=== PATIENT | female | born 1935 | race Caucasian/White ===

== ENCOUNTER 2017-09-05 19:59 | Observation (INO) | payer MEDICARE, OTHER ==
[2017-09-05] MEDS ORDERED: Nitroglycerin 0.4 MG Tab.SL SL ONE (20:08)
--- NOTE | 2017-09-05 20:13 | EDM.PDOC ---
ED HPI GENERAL MEDICAL PROBLEM - General Chief Complaint: Chest Pain Stated Complaint: chest pain Time Seen by Provider: 09/05/17 20:06 Source of Information: Reports: Patient History Limitations: Reports: No Limitations - History of Present Illness INITIAL COMMENTS - FREE TEXT/NARRATIVE: 30 min history of chest pain. Describes feeling of epigastric burning sensation that feels like heartburn. Discomfort radiates into left shoulder/arm and neck. Has improved since it started. Also radiated towards back at its worst. No history of similar pain in past. Denies CAD/ND history. No SOB/sweating. Had mild nausea. No other changes reported by patient. Normal stress test one year ago. - Related Data Allergies Allergy/AdvReac Type Severity Reaction Status Date / Time Sulfa (Sulfonamide Allergy Other Verified 09/05/17 20:04 Antibiotics) Home Meds: Home Meds ALPRAZolam [Alprazolam] 1.5 mg PO BEDTIME 01/31/15 [History] Aspirin 325 mg PO DAILY 01/31/15 [History] Atenolol 0.5 tab PO BID 01/31/15 [History] Furosemide 1 tab PO DAILY 01/31/15 [History] Imipramine HCl 4 tab PO BEDTIME 01/31/15 [History] Simvastatin 1 tab PO BEDTIME 01/31/15 [History] Past Medical History Cardiovascular History: Reports: High Cholesterol, Hypertension Gastrointestinal History: Reports: GERD Psychiatric History: Reports: Anxiety, Depression Social & Family History - Family History Other Cardiac Family History: Denies history of ND/CAD in family. - Tobacco Use Smoking Status *Q: Never Smoker - Alcohol Use Alcohol Use History: No - Recreational Drug Use Recreational Drug Use: No Drug Use in Last 12 Months: No ED ROS GENERAL - Review of Systems Review Of Systems: See Below Constitutional: Reports: No Symptoms. Denies: Fever, Chills, Night Sweats, Diaphoresis, Decreased Appetite HEENT: Reports: No Symptoms Respiratory: Reports: No Symptoms. Denies: Shortness of Breath, Pleuritic Chest Pain, Cough, Sputum, Hemoptysis Cardiovascular: Reports: Chest Pain. Denies: Dyspnea on Exertion, Edema, Lightheadedness, Orthopnea, Palpitations, PND, Syncope GI/Abdominal: Reports: Nausea. Denies: Abdominal Pain, Constipation, Diarrhea, Distension, Vomiting : Reports: No Symptoms Musculoskeletal: Reports: Neck Pain, Shoulder Pain, Back Pain (per HPI) Skin: Reports: No Symptoms Neurological: Reports: No Symptoms Psychiatric: Reports: No Symptoms Hematologic/Lymphatic: Reports: No Symptoms ED EXAM, GENERAL - Physical Exam Exam: See Below Exam Limited By: No Limitations General Appearance: Alert, WD/WN, No Apparent Distress Eye Exam: Bilateral Eye: EOMI, PERRL Ears: Normal External Exam Nose: No: Nasal Deformity, Nasal Swelling, Nasal Drainage Throat/Mouth: Normal Lips, Normal Voice, No Airway Compromise Head: Atraumatic, Normocephalic Neck: Normal Inspection, Supple, Non-Tender, Full Range of Motion. No: Carotid Bruit, Lymphadenopathy (L), Lymphadenopathy (R) Respiratory/Chest: No Respiratory Distress, Lungs Clear, Normal Breath Sounds, No Accessory Muscle Use, Chest Non-Tender Cardiovascular: Normal Peripheral Pulses, Regular Rate, Rhythm, No Edema, No Murmur Peripheral Pulses: 2+: Radial (L), Radial (R), Dorsalis Pedis (L), Dorsalis Pedis (R) GI/Abdominal: Normal Bowel Sounds, Soft, Non-Tender, No Distention (Female) Exam: Deferred Rectal (Female) Exam: Deferred Back Exam: Normal Inspection. No: CVA Tenderness (L), CVA Tenderness (R) Extremities: Non-Tender, Normal Capillary Refill Neurological: Alert, Oriented, Normal Cognition, Normal Gait (for age), No Motor /Sensory Deficits Psychiatric: Normal Affect, Normal Mood Skin Exam: Warm, Dry, Intact, Normal Color EKG INTERPRETATION EKG Date: 09/05/17 Time: 20:16 Rhythm: Other (1st degree AV block) Rate (Beats/Min): 58 [place]: Normal P-Wave: Present QRS: Normal ST-T: Other (No changes suggestive of ischemia noted. Flipped Ts V1 and V2) QT: Normal Comparison: NA - No Prior EKG Course - Vital Signs Last Recorded V/S: Last Vital Signs Temp 36.2 C 09/05/17 20:00 Pulse 56 L 09/05/17 21:03 Resp 25 H 09/05/17 21:03 BP 142/58 H 09/05/17 21:03 Pulse Ox 96 09/05/17 21:03 - Orders/Labs/Meds Orders: Active Orders 24 hr Category Date Time Status EKG Documentation Completion [RC] ASDIRECTED Care 09/05/17 20:07 Active Chest 2V [CR] Stat Exams 09/05/17 20:06 Taken UA W/MICROSCOPIC [URIN] Stat Lab 09/05/17 20:06 Ordered Sodium Chloride 0.9% [Saline Flush] Med 09/05/17 20:06 Active 10 ml FLUSH ASDIRECTED PRN Saline Lock Insert [OM.PC] Stat Oth 09/05/17 20:06 Ordered Medication Orders Sodium Chloride (Saline Flush) 10 ml FLUSH ASDIRECTED PRN PRN Reason: Keep Vein Open Last Admin: 09/05/17 20:22 Dose: 10 ml Labs: Laboratory Tests 09/05/17 09/05/17 09/05/17 Range/Units 20:10 20:10 20:10 WBC 7.5 (4.0-10.2) K/uL RBC 3.47 L (3.77-5.09) M/uL Hgb 11.1 L (11.7-15.5) g/dL Hct 33.8 L (34.0-46.0) % MCV 97.4 (84.0-98.0) fL MCH 32.0 (28.2-33.3) pg MCHC 32.8 (31.7-36.0) g/dL RDW 13.5 (11.2-14.1) % Plt Count 244 (150-350) K/uL Neut % (Auto) 51.0 (45.0-80.0) % Lymph % (Auto) 31.6 (10.0-50.0) % [place] % (Auto) 13.5 (2.0-14.0) % Eos % (Auto) 3.4 (0.0-5.0) % Baso % (Auto) 0.5 (0.0-2.0) % Neut # (Auto) 3.84 (1.40-7.00) K/uL Lymph # (Auto) 2.38 (0.50-3.50) K/uL [place] # (Auto) 1.02 H (0.00-1.00) K/uL Eos # (Auto) 0.26 (0.00-0.50) K/uL Baso # (Auto) 0.04 (0.00-0.20) K/uL PT (9.8-11.7) SEC INR D-Dimer, Quantitative 553 H (0-400) ng/mL Sodium 138 (136-145) mmol/L Potassium 3.8 (3.5-5.1) mmol/L Chloride 102 (98-107) mmol/L Carbon Dioxide 30.0 (21.0-32.0) mmol/L BUN 37 H (7-18) mg/dL Creatinine 1.83 H (0.51-1.17) mg/dL Est Cr Clr Drug Dosing TNP Estimated GFR (MDRD) 26 mL/min Glucose 120 H (74-106) mg/dL Calcium 10.1 (8.5-10.1) mg/dL Magnesium 2.4 (1.8-2.4) mg/dL Total Bilirubin 0.2 (0.2-1.0) mg/dL AST 20 (15-37) U/L ALT 29 (12-78) U/L Alkaline Phosphatase 59 (46-116) IU/L Creatine Kinase 46 (26-308) U/L Creatine Kinase Index 2.6 H (0.0-2.5) % CK-MB (CK-2) 1.20 (0.00-3.60) ng/mL Troponin I 0.000 (0.000-0.056) ng/mL NT-Pro-B Natriuret Pep 393 H (0-125) pg/mL Total Protein 7.5 (6.4-8.2) g/dL Albumin 3.8 (3.4-5.0) g/dL 09/05/17 Range/Units 20:10 WBC (4.0-10.2) K/uL RBC (3.77-5.09) M/uL Hgb (11.7-15.5) g/dL Hct (34.0-46.0) % MCV (84.0-98.0) fL MCH (28.2-33.3) pg MCHC (31.7-36.0) g/dL RDW (11.2-14.1) % Plt Count (150-350) K/uL Neut % (Auto) (45.0-80.0) % Lymph % (Auto) (10.0-50.0) % [place] % (Auto) (2.0-14.0) % Eos % (Auto) (0.0-5.0) % Baso % (Auto) (0.0-2.0) % Neut # (Auto) (1.40-7.00) K/uL Lymph # (Auto) (0.50-3.50) K/uL [place] # (Auto) (0.00-1.00) K/uL Eos # (Auto) (0.00-0.50) K/uL Baso # (Auto) (0.00-0.20) K/uL PT 11.5 (9.8-11.7) SEC INR 1.1 D-Dimer, Quantitative (0-400) ng/mL Sodium (136-145) mmol/L Potassium (3.5-5.1) mmol/L Chloride (98-107) mmol/L Carbon Dioxide (21.0-32.0) mmol/L BUN (7-18) mg/dL Creatinine (0.51-1.17) mg/dL Est Cr Clr Drug Dosing Estimated GFR (MDRD) mL/min Glucose (74-106) mg/dL Calcium (8.5-10.1) mg/dL Magnesium (1.8-2.4) mg/dL Total Bilirubin (0.2-1.0) mg/dL AST (15-37) U/L ALT (12-78) U/L Alkaline Phosphatase (46-116) IU/L Creatine Kinase (26-308) U/L Creatine Kinase Index (0.0-2.5) % CK-MB (CK-2) (0.00-3.60) ng/mL Troponin I (0.000-0.056) ng/mL NT-Pro-B Natriuret Pep (0-125) pg/mL Total Protein (6.4-8.2) g/dL Albumin (3.4-5.0) g/dL Meds: Medications Generic Name Dose Route Start Last Admin Trade Name Freq PRN Reason Stop Dose Admin Sodium Chloride 10 ml 09/05/17 20:09/05/17 20:22 Saline Flush FLUSH 10 ml ASDIRECTED PRN Administration Keep Vein Open Discontinued Medications Generic Name Dose Route Start Last Admin Trade Name Freq PRN Reason Stop Dose Admin Nitroglycerin 0.4 mg 09/05/17 20:08 09/05/17 20:21 Nitrostat SL 09/05/17 20:09 0.4 mg ONETIME ONE Administration - Radiology Interpretation Free Text/Narrative:: Chest xray overall unremarkable for acute changes. - Re-Assessments/Exams Free Text/Narrative Re-Assessment/Exam: 09/05/17 21:22 Patient became completely pain-free shortly after arrival to ER. No other acute complaints. Not given SL Nitro. EKG did not suggest acute ischemia. Troponin and CKMB normal. Hgb decreased to 11.1 DDimer mildly elevated at 553 BUn 37/Cr 1.8 ProBNP 393 Patient's sats within normal range. No respiratory complaints. Again, currently complaint-free. Given this along with the renal dysfunction, no CT scan performed at this time to r/o possible presence of PE given the low likelihood of one being present based on history of exam. Will continue to monitor for respiratory change and DDimer trends. Patient to be admitted on observation overnight and will be placed on telemetry as well as have serial troponin measurements drawn. Patient does have history of GERD and this is included in the differential for cause of patient's pain complaint tonight. Departure - Departure Time of Disposition: 21:28 Disposition: Refer to Observation Condition: Good Clinical Impression: Chest pain Qualifiers: Chest pain type: unspecified Qualified Code(s): R07.9 - Chest pain, unspecified Referrals: Ora Amin NP [Primary Care Provider] - Forms: ED Department Discharge - Problem List & Annotations (1) Chest pain SNOMED Code(s): 13314281 Code(s): R07.9 - CHEST PAIN, UNSPECIFIED Status: Acute Priority: High Current Visit: Yes Onset Date: 09/05/17 Annotation/Comment:: Uncertain cause. History of GERD. Admit to observation. Telemetry and serial cardiac enzyme measurement. Normal stress test one year ago. Qualifiers: Chest pain type: unspecified Qualified Code(s): R07.9 - Chest pain, unspecified (2) GERD (gastroesophageal reflux disease) SNOMED Code(s): 165012829 Code(s): K21.9 - GASTRO-ESOPHAGEAL REFLUX DISEASE WITHOUT ESOPHAGITIS Status: Chronic Priority: Medium Current Visit: Yes Annotation/Comment:: History of intermittent heartburn. May have contributed to symptoms experienced tonight Qualifiers: Esophagitis presence: esophagitis presence not specified Qualified Code(s) : K21.9 - Gastro-esophageal reflux disease without esophagitis (3) Hypertension SNOMED Code(s): 88891987 Code(s): I10 - ESSENTIAL (PRIMARY) HYPERTENSION Status: Chronic Priority : Medium Current Visit: Yes Annotation/Comment:: observe for trends Qualifiers: Hypertension type: essential hypertension Qualified Code(s): I10 - Essential (primary) hypertension (4) Anxiety and depression SNOMED Code(s): 43665118 Code(s): F41.9 - ANXIETY DISORDER, UNSPECIFIED; F32.9 - MAJOR DEPRESSIVE DISORDER, SINGLE EPISODE, UNSPECIFIED Status: Chronic Priority: Low Current Visit: No Annotation/Comment:: overall has been stable (5) Hyperlipidemia SNOMED Code(s): 51210685 Code(s): E78.5 - HYPERLIPIDEMIA, UNSPECIFIED Status: Acute Priority: Low Current Visit: No Qualifiers: Hyperlipidemia type: unspecified Qualified Code(s): E78.5 - Hyperlipidemia , unspecified - Problem List Review Problem List Initiated/Reviewed/Updated: Yes - My Orders Last 24 Hours: My Active Orders 09/05/17 20:06 Chest 2V [CR] Stat UA W/MICROSCOPIC [URIN] Stat Sodium Chloride 0.9% [Saline Flush] 10 ml FLUSH ASDIRECTED PRN Saline Lock Insert [OM.PC] Stat 09/05/17 20:07 EKG Documentation Completion [RC] ASDIRECTED - Assessment/Plan Admission H&P: Please use this note as an admission H&P Last 24 Hours: My Active Orders 09/05/17 20:06 Chest 2V [CR] Stat UA W/MICROSCOPIC [URIN] Stat Sodium Chloride 0.9% [Saline Flush] 10 ml FLUSH ASDIRECTED PRN Saline Lock Insert [OM.PC] Stat 09/05/17 20:07 EKG Documentation Completion [RC] ASDIRECTED Assessment:: as above Plan: as above
[2017-09-05] MEDS: Sodium Chloride 0.9% 10 ML Syringe FLUSH PRN ×2 (20:22→22:44)
[2017-09-05 20:42] LABS: CHLORIDE,CL 102 mmol/L (98-107); SODIUM,NA 138 mmol/L (136-145)
[2017-09-05] MEDS ORDERED: Acetaminophen 325 MG Tab PO PRN (21:38)
[2017-09-05] MEDS ORDERED: Calcium Carbonate 500 MG Tab.Chew PO PRN (21:38)
[2017-09-05] MEDS ORDERED: Pantoprazole 40 MG in Sodium Chloride 0.9% 100 ML IV ONE (21:41)
[2017-09-05] MEDS ORDERED: Nitroglycerin 0.4 MG Tab.SL SL PRN (21:42)
[2017-09-05] MEDS ORDERED: ALPRAZolam 0.25 MG Tab PO SCH (22:13)
[2017-09-05] MEDS ORDERED: Pantoprazole 40 MG Vial IVPUSH ONE (22:23)
[2017-09-06] MEDS ORDERED: Furosemide 20 MG Tab PO SCH (08:00)
[2017-09-06] MEDS ORDERED: Atenolol 25 MG Tab PO SCH (08:00)
[2017-09-06] MEDS ORDERED: Aspirin 325 MG Tab PO SCH (08:00)
[2017-09-06 08:25] VITALS: BP 137/49
--- NOTE | 2017-09-06 10:44 | PCM.DCSUM1 ---
Discharge Summary - Hospital Course Brief History: Patient admitted for chest pain protocol. Serial troponin/CKMB and telemetry performed. - Discharge Data Discharge Date: 09/06/17 Discharge Disposition: Home, Self-Care 01 Condition: Good - Discharge Diagnosis/Problem(s) (1) Chest pain SNOMED Code(s): 58329930 ICD Code: R07.9 - CHEST PAIN, UNSPECIFIED Status: Acute Priority: High Current Visit: Yes Onset Date: 09/05/17 Problem Details: Negative overnight Troponins/CKMB. EKG shows no acute changes this morning. Differential for last night's chest pain episode includes cardiac and GI etiology. To follow up with primary care provider. May need new stress test/echo. Normal stress test one year ago. Qualifiers: Chest pain type: unspecified Qualified Code(s): R07.9 - Chest pain, unspecified (2) GERD (gastroesophageal reflux disease) SNOMED Code(s): 850331166 ICD Code: K21.9 - GASTRO-ESOPHAGEAL REFLUX DISEASE WITHOUT ESOPHAGITIS Status: Chronic Priority: Medium Current Visit: Yes Problem Details: History of intermittent heartburn. May have contributed to symptoms experienced last night Qualifiers: Esophagitis presence: esophagitis presence not specified Qualified Code(s) : K21.9 - Gastro-esophageal reflux disease without esophagitis (3) Hypertension SNOMED Code(s): 94581074 ICD Code: I10 - ESSENTIAL (PRIMARY) HYPERTENSION Status: Chronic Priority : Medium Current Visit: Yes Problem Details: observe for trends Qualifiers: Hypertension type: essential hypertension Qualified Code(s): I10 - Essential (primary) hypertension (4) Anxiety and depression SNOMED Code(s): 29962252 ICD Code: F41.9 - ANXIETY DISORDER, UNSPECIFIED; F32.9 - MAJOR DEPRESSIVE DISORDER, SINGLE EPISODE, UNSPECIFIED Status: Chronic Priority: Low Current Visit: No Problem Details: overall has been stable (5) Hyperlipidemia SNOMED Code(s): 59447776 ICD Code: E78.5 - HYPERLIPIDEMIA, UNSPECIFIED Status: Acute Priority: Low Current Visit: No Qualifiers: Hyperlipidemia type: unspecified Qualified Code(s): E78.5 - Hyperlipidemia , unspecified (6) UTI (urinary tract infection) SNOMED Code(s): 14396697 ICD Code: N39.0 - URINARY TRACT INFECTION, SITE NOT SPECIFIED Status: Acute Priority: High Current Visit: Yes Problem Details: UA showed some elevation in WBC and L.E. Culture requested. Patient placed on Macrobid. Qualifiers: Urinary tract infection type: site unspecified Hematuria presence: without hematuria Qualified Code(s): N39.0 - Urinary tract infection, site not specified - Patient Summary/Data Hospital Course: Patient experienced no further chest pain overnight. Feels like usual self. Troponins and CKMB all negative. Morning EKG shows no acute changes/no suggestion of ischemia. Patient would like to go home now and forego last scheduled labs at 1800 tonight. Mild elevation WBC/L.E. noted in UA. Patient placed on Macrobid. UC requested. Precautions reviewed. Recommend follow up with primary provider this week for re -evaluation and scheduling of any additional testing that is appropriate. Discussed mildly elevated DDimer with patient and . Given no SOB, normal respiratory rate, good oxygen saturation, absence of any chest pain since admission, and compromised renal function, no CT scan to rule out PE performed at this time. Patient and are in agreement with this decision. They also know that if any of the above were to develop, she will likely need some sort of scan to rule PE out formally. - Patient Instructions Diet: Heart Healthy Diet Activity: As Tolerated Driving: May Drive Today Showering/Bathing: May Shower Other/Special Instructions: Follow up next week with [facility]. Discuss potential additional testing such as new stress test to more formally rule out cardiac disease causing your symptoms. - Discharge Plan Prescriptions/Med Rec: Nitrofurantoin Monohyd/M-Cryst [Macrobid 100 mg Capsule] 100 mg PO BID #14 capsule Home Medications: Home Meds ALPRAZolam [Alprazolam] 1.5 mg PO BEDTIME 01/31/15 [History] Aspirin 325 mg PO DAILY 01/31/15 [History] Atenolol 0.5 tab PO BID 01/31/15 [History] Furosemide 1 tab PO DAILY 01/31/15 [History] Imipramine HCl 4 tab PO BEDTIME 01/31/15 [History] Simvastatin 1 tab PO BEDTIME 01/31/15 [History] Nitrofurantoin Monohyd/M-Cryst [Macrobid 100 mg Capsule] 100 mg PO BID #14 capsule 09/06/17 [Rx] Patient Handouts: Heartburn, [id number], Nonspecific Chest Pain, [id number] , Co-Enzyme Q10 oral dosage forms Forms: ED Department Discharge Referrals: Ora Amin NP [Primary Care Provider] - - Discharge Summary/Plan Comment DC Time >30 min.: No - General Info Date of Service: 09/06/17 Admission Dx/Problem (Free Text: Chest pain Functional Status: Reports: Pain Controlled, Tolerating Diet, Ambulating, Urinating. Denies: New Symptoms - Review of Systems General: Reports: No Symptoms HEENT: Reports: No Symptoms, Glasses Pulmonary: Reports: No Symptoms Cardiovascular: Reports: No Symptoms Gastrointestinal: Reports: No Symptoms Genitourinary: Reports: No Symptoms Musculoskeletal: Reports: No Symptoms Skin: Reports: No Symptoms Neurological: Reports: No Symptoms Psychiatric: Reports: No Symptoms - Patient Data Vitals - Most Recent: Last Vital Signs Temp 36.7 C 09/06/17 08:00 Pulse 53 L 09/06/17 08:00 Resp 16 09/06/17 08:00 BP 137/49 L 09/06/17 08:00 Pulse Ox 96 09/06/17 08:00 Weight - Most Recent: 71.214 kg I&O - Last 24 hours: Intake & Output 09/05/17 09/06/17 09/06/17 22:59 06:59 14:59 Intake Total 1000 Output Total 400 Balance -400 1000 Lab Results - Last 24 hrs: Laboratory Results - last 24 hr 09/05/17 09/05/17 09/05/17 Range/Units 20:10 20:10 20:10 WBC 7.5 (4.0-10.2) K/uL RBC 3.47 L (3.77-5.09) M/uL Hgb 11.1 L (11.7-15.5) g/dL Hct 33.8 L (34.0-46.0) % MCV 97.4 (84.0-98.0) fL MCH 32.0 (28.2-33.3) pg MCHC 32.8 (31.7-36.0) g/dL RDW 13.5 (11.2-14.1) % Plt Count 244 (150-350) K/uL Neut % (Auto) 51.0 (45.0-80.0) % Lymph % (Auto) 31.6 (10.0-50.0) % [place] % (Auto) 13.5 (2.0-14.0) % Eos % (Auto) 3.4 (0.0-5.0) % Baso % (Auto) 0.5 (0.0-2.0) % Neut # (Auto) 3.84 (1.40-7.00) K/uL Lymph # (Auto) 2.38 (0.50-3.50) K/uL [place] # (Auto) 1.02 H (0.00-1.00) K/uL Eos # (Auto) 0.26 (0.00-0.50) K/uL Baso # (Auto) 0.04 (0.00-0.20) K/uL PT (9.8-11.7) SEC INR D-Dimer, Quantitative 553 H (0-400) ng/mL Sodium 138 (136-145) mmol/L Potassium 3.8 (3.5-5.1) mmol/L Chloride 102 (98-107) mmol/L Carbon Dioxide 30.0 (21.0-32.0) mmol/L BUN 37 H (7-18) mg/dL Creatinine 1.83 H (0.51-1.17) mg/dL Est Cr Clr Drug Dosing TNP Estimated GFR (MDRD) 26 mL/min Glucose 120 H (74-106) mg/dL Calcium 10.1 (8.5-10.1) mg/dL Magnesium 2.4 (1.8-2.4) mg/dL Total Bilirubin 0.2 (0.2-1.0) mg/dL AST 20 (15-37) U/L ALT 29 (12-78) U/L Alkaline Phosphatase 59 (46-116) IU/L Creatine Kinase 46 (26-308) U/L Creatine Kinase Index 2.6 H (0.0-2.5) % CK-MB (CK-2) 1.20 (0.00-3.60) ng/mL Troponin I 0.000 (0.000-0.056) ng/mL NT-Pro-B Natriuret Pep 393 H (0-125) pg/mL Total Protein 7.5 (6.4-8.2) g/dL Albumin 3.8 (3.4-5.0) g/dL Specimen Type Urine Color Urine Appearance Urine pH (5.0-9.0) Ur Specific [place] (1.005-1.030) Urine Protein (NEGATIVE) mg/dL Urine Glucose (UA) (NEGATIVE) mg/dL Urine Ketones (NEGATIVE) mg/dL Urine Occult Blood (NEGATIVE) Urine Nitrite (NEGATIVE) Urine Bilirubin (NEGATIVE) Urine Urobilinogen (0.2-1.0) E.U./dL Ur Leukocyte Esterase (NEGATIVE) Urine RBC /HPF Urine WBC /HPF Ur Epithelial Cells /LPF Urine Bacteria (NONE TO FEW) /HPF 09/05/17 09/05/17 09/06/17 Range/Units 20:10 21:50 01:30 WBC (4.0-10.2) K/uL RBC (3.77-5.09) M/uL Hgb (11.7-15.5) g/dL Hct (34.0-46.0) % MCV (84.0-98.0) fL MCH (28.2-33.3) pg MCHC (31.7-36.0) g/dL RDW (11.2-14.1) % Plt Count (150-350) K/uL Neut % (Auto) (45.0-80.0) % Lymph % (Auto) (10.0-50.0) % [place] % (Auto) (2.0-14.0) % Eos % (Auto) (0.0-5.0) % Baso % (Auto) (0.0-2.0) % Neut # (Auto) (1.40-7.00) K/uL Lymph # (Auto) (0.50-3.50) K/uL [place] # (Auto) (0.00-1.00) K/uL Eos # (Auto) (0.00-0.50) K/uL Baso # (Auto) (0.00-0.20) K/uL PT 11.5 (9.8-11.7) SEC INR 1.1 D-Dimer, Quantitative (0-400) ng/mL Sodium (136-145) mmol/L Potassium (3.5-5.1) mmol/L Chloride (98-107) mmol/L Carbon Dioxide (21.0-32.0) mmol/L BUN (7-18) mg/dL Creatinine (0.51-1.17) mg/dL Est Cr Clr Drug Dosing Estimated GFR (MDRD) mL/min Glucose (74-106) mg/dL Calcium (8.5-10.1) mg/dL Magnesium (1.8-2.4) mg/dL Total Bilirubin (0.2-1.0) mg/dL AST (15-37) U/L ALT (12-78) U/L Alkaline Phosphatase (46-116) IU/L Creatine Kinase 39 (26-308) U/L Creatine Kinase Index 2.8 H (0.0-2.5) % CK-MB (CK-2) 1.10 (0.00-3.60) ng/mL Troponin I 0.000 (0.000-0.056) ng/mL NT-Pro-B Natriuret Pep (0-125) pg/mL Total Protein (6.4-8.2) g/dL Albumin (3.4-5.0) g/dL Specimen Type Urinblad Urine Color Yellow Urine Appearance Clear Urine pH 7.0 (5.0-9.0) Ur Specific [place] 1.015 (1.005-1.030) Urine Protein Negative (NEGATIVE) mg/dL Urine Glucose (UA) Negative (NEGATIVE) mg/dL Urine Ketones Negative (NEGATIVE) mg/dL Urine Occult Blood Negative (NEGATIVE) Urine Nitrite Negative (NEGATIVE) Urine Bilirubin Negative (NEGATIVE) Urine Urobilinogen 0.2 (0.2-1.0) E.U./dL Ur Leukocyte Esterase Small H (NEGATIVE) Urine RBC 0-5 /HPF Urine WBC 20-30 H /HPF Ur Epithelial Cells Few /LPF Urine Bacteria Few (NONE TO FEW) /HPF 09/06/17 Range/Units 07:30 WBC (4.0-10.2) K/uL RBC (3.77-5.09) M/uL Hgb (11.7-15.5) g/dL Hct (34.0-46.0) % MCV (84.0-98.0) fL MCH (28.2-33.3) pg MCHC (31.7-36.0) g/dL RDW (11.2-14.1) % Plt Count (150-350) K/uL Neut % (Auto) (45.0-80.0) % Lymph % (Auto) (10.0-50.0) % [place] % (Auto) (2.0-14.0) % Eos % (Auto) (0.0-5.0) % Baso % (Auto) (0.0-2.0) % Neut # (Auto) (1.40-7.00) K/uL Lymph # (Auto) (0.50-3.50) K/uL [place] # (Auto) (0.00-1.00) K/uL Eos # (Auto) (0.00-0.50) K/uL Baso # (Auto) (0.00-0.20) K/uL PT (9.8-11.7) SEC INR D-Dimer, Quantitative (0-400) ng/mL Sodium (136-145) mmol/L Potassium (3.5-5.1) mmol/L Chloride (98-107) mmol/L Carbon Dioxide (21.0-32.0) mmol/L BUN (7-18) mg/dL Creatinine (0.51-1.17) mg/dL Est Cr Clr Drug Dosing Estimated GFR (MDRD) mL/min Glucose (74-106) mg/dL Calcium (8.5-10.1) mg/dL Magnesium (1.8-2.4) mg/dL Total Bilirubin (0.2-1.0) mg/dL AST (15-37) U/L ALT (12-78) U/L Alkaline Phosphatase (46-116) IU/L Creatine Kinase 36 (26-308) U/L Creatine Kinase Index 3.1 H (0.0-2.5) % CK-MB (CK-2) 1.10 (0.00-3.60) ng/mL Troponin I 0.000 (0.000-0.056) ng/mL NT-Pro-B Natriuret Pep (0-125) pg/mL Total Protein (6.4-8.2) g/dL Albumin (3.4-5.0) g/dL Specimen Type Urine Color Urine Appearance Urine pH (5.0-9.0) Ur Specific [place] (1.005-1.030) Urine Protein (NEGATIVE) mg/dL Urine Glucose (UA) (NEGATIVE) mg/dL Urine Ketones (NEGATIVE) mg/dL Urine Occult Blood (NEGATIVE) Urine Nitrite (NEGATIVE) Urine Bilirubin (NEGATIVE) Urine Urobilinogen (0.2-1.0) E.U./dL Ur Leukocyte Esterase (NEGATIVE) Urine RBC /HPF Urine WBC /HPF Ur Epithelial Cells /LPF Urine Bacteria (NONE TO FEW) /HPF Med Orders - Current: Current Medications Acetaminophen (Tylenol) 650 mg PO Q4H PRN PRN Reason: analgesia/fever Alprazolam (Xanax) 1.5 mg PO BEDTIME [facility] Last Admin: 09/05/17 22:44 Dose: 1.5 mg Aspirin (Aspirin) 325 mg PO DAILY [facility] Last Admin: 09/06/17 07:54 Dose: 325 mg Atenolol (Tenormin) 12.5 mg PO BID [facility] Last Admin: 09/06/17 07:54 Dose: 12.5 mg Calcium Carbonate/Glycine (Tums) 500 mg PO Q4H PRN PRN Reason: Dyspepsia Coenzyme Q10 (Coenzyme Q10) 100 mg PO DAILY [facility] Last Admin: 09/06/17 07:54 Dose: 100 mg Furosemide (Lasix) 20 mg PO DAILY [facility] Last Admin: 09/06/17 07:54 Dose: 20 mg Imipramine HCl (Imipramine Hcl) 100 mg PO BEDTIME [facility] Last Admin: 09/05/17 22:44 Dose: 100 mg Nitroglycerin (Nitrostat) 0.4 mg SL Q5M PRN PRN Reason: Chest Pain Simvastatin (Zocor) 40 mg PO BEDTIME [facility] Sodium Chloride (Saline Flush) 10 ml FLUSH ASDIRECTED PRN PRN Reason: Keep Vein Open Last Admin: 09/05/17 22:44 Dose: 10 ml Discontinued Medications Alprazolam (Xanax) 1.5 mg PO BEDTIME [facility] Imipramine HCl (Imipramine Hcl) 100 mg PO BEDTIME [facility] Imipramine HCl (Imipramine Hcl) Confirm Administered Dose 50 mg .ROUTE .STK-MED ONE Stop: 09/05/17 22:51 Last Admin: 09/05/17 23:10 Dose: Not Given Nitroglycerin (Nitrostat) 0.4 mg SL ONETIME ONE Stop: 09/05/17 20:09 Last Admin: 09/05/17 20:21 Dose: 0.4 mg Pantoprazole Sodium (Protonix Iv) 40 mg IVPUSH ONETIME ONE Stop: 09/05/17 22:24 Last Admin: 09/05/17 22:44 Dose: 40 mg - Exam General: Reports: Alert, Oriented, Cooperative, No Acute Distress HEENT: Reports: Pupils Equal, Pupils Reactive, EOMI, Mucous Membr. Moist/[place] Neck: Reports: Supple Lungs: Reports: Clear to Auscultation, Normal Respiratory Effort Cardiovascular: Reports: Regular Rate, Regular Rhythm GI/Abdominal Exam: Normal Bowel Sounds, Soft, Non-Tender, No Distention (Female) Exam: Deferred Rectal (Female) Exam: Deferred Back Exam: Denies: CVA Tenderness (L), CVA Tenderness (R) Extremities: Non-Tender, Normal Capillary Refill Skin: Reports: Warm, Dry Neurological: Reports: No New Focal Deficit Psy/Mental Status: Reports: Alert, Normal Affect, Normal Mood EKG INTERPRETATION EKG Date: 09/06/17 Time: 08:24 Rhythm: Other (1st degree AV block, sinus bradycardia) Rate (Beats/Min): 55 [place]: Normal P-Wave: Present QRS: Other (incomplete right BBB) ST-T: Normal QT: Normal Comparison: No Change (overall no signficant changes.)
[2017-09-06] MEDS ORDERED: Simvastatin 20 MG Tab PO SCH (20:00)
[2017-09-06] MEDS ORDERED: ALPRAZolam 0.25 MG Tab PO SCH (20:00)
== END 2017-09-06 11:15 | disposition home or self-care (01) ==
LOC: LL.ED 19:59 → LL.MS 21:05
PROVIDERS: ADMIT Emergency Medicine; ATTEND Emergency Medicine
DX: R07.9 Chest pain, unspecified (principal); N39.0 Urinary tract infection, site not specified; K21.9 Gastro-esophageal reflux disease without esophagitis; I10 Essential (primary) hypertension; F41.9 Anxiety disorder, unspecified; F32.9 Major depressive disorder, single episode, unspecified; E78.5 Hyperlipidemia, unspecified; E78.00 Pure hypercholesterolemia, unspecified; Z79.899 Other long term (current) drug therapy; Z79.82 Long term (current) use of aspirin; Z88.2 Allergy status to sulfonamides
CPT/HCPCS: 36415; 71046; 80053; 81001; 82550; 82553; 83735; 83880; 84484; 85025; 85379; 85610; 87086; 93005; 96374; 99285; A9270-GY; C9113; G0378; J7050

== ENCOUNTER 2023-01-03 20:53 | Emergency (ER) | payer MEDICARE, OTHER ==
[2023-01-03 20:57] VITALS: PULSE 68
[2023-01-03 21:18] VITALS: BP 179/59
[2023-01-03 21:29] LABS: BASOPHILS ABSOLUTE AUTO 0.03 K/uL (0.00-0.20); BASOPHILS PERCENT AUTO 0.4 % (0.0-2.0); EOSINOPHILS ABSOLUTE AUTO 0.25 K/uL (0.00-0.50); EOSINOPHILS PERCENT AUTO 3.5 % (0.0-5.0); HEMOGLOBIN 8.9 g/dL (11.7-15.5); LYMPHOCYTES PERCENT AUTO 11.3 % (10.0-50.0); MEAN CORPUSCULAR HEMOGLOBIN 30.9 pg (28.2-33.3); MEAN CORPUSCULAR HGB CONC 31.8 g/dL (31.7-36.0); MEAN CORPUSCULAR VOLUME 97.2 fL (84.0-98.0); MONOCYTES ABSOLUTE AUTO 0.81 K/uL (0.00-1.00); MONOCYTES PERCENT AUTO 11.4 % (2.0-14.0); NEUTROPHILS ABSOLUTE AUTO 5.22 K/uL (1.40-7.00); NEUTROPHILS PERCENT AUTO 73.4 % (45.0-80.0); PLATELET COUNT,PLT 269 K/uL (150-350); RED BLOOD CELL COUNT 2.88 M/uL (3.77-5.09); RED CELL DISTRIBUTION WIDTH 15.6 % (11.2-14.1); WHITE BLOOD CELL COUNT,WBC 7.1 K/uL (4.0-10.2)
[2023-01-03 21:44] LABS: INR 1.1 (0.9-1.1)
[2023-01-03 21:48] LABS: ALANINE AMINOTRANSFERASE,ALT 6 U/L (12-78); ALKALINE PHOSPHATASE 97 IU/L (46-116); ANION GAP 9.1 meq/L (7-15); ASPARTATE AMNIOTRANSFERASE,AST 15 U/L (15-37); BILIRUBIN TOTAL 0.2 mg/dL (0.2-1.0); BLOOD UREA NITROGEN,BUN 32 mg/dL (7-18); CALCIUM 9.8 mg/dL (8.5-10.1); CARBON DIOXIDE,CO2 24.9 mmol/L (21.0-32.0); CHLORIDE,CL 102 mmol/L (98-107); CREATININE 1.19 mg/dL (0.51-1.17); GLUCOSE RANDOM 111 mg/dL (70-99); POTASSIUM,K 4.4 mmol/L (3.5-5.1); PROTEIN TOTAL,TP 6.6 g/dL (6.4-8.2); SODIUM,NA 136 mmol/L (136-145)
[2023-01-03 21:49] LABS: ESTIMATED GFR 44 mL/min (>=60)
[2023-01-03] MEDS ORDERED: levETIRAcetam 500 MG Tab PO ONE ×2 (22:05→22:07)
== END 2023-01-03 22:30 ==
LOC: LL.ED 20:53
DX: R56.9 Unspecified convulsions (principal); G20 Parkinson's disease; I10 Essential (primary) hypertension; Z88.2 Allergy status to sulfonamides; Z79.82 Long term (current) use of aspirin; Z79.899 Other long term (current) drug therapy
CPT/HCPCS: 36415; 80053; 85025; 85610; 99285; A9270; 99284